=== PATIENT | male | born 1965 | race Caucasian/White ===

== ENCOUNTER 2020-09-24 17:54 | Inpatient (IN) | payer OTHER ==
[~2020-09-24] VITALS: Ht 172.7 cm; Wt 88.9 kg
[2020-09-24] MEDS ORDERED: ZESTRIL10 M1 PO (18:06)
[2020-10-13] MEDS ORDERED: B Complex CAPSULE PO (10:05)
[2020-10-13] MEDS ORDERED: HYDRALAZINE HCL50 MG PO (10:05)
[2020-10-13] MEDS ORDERED: PREDNISONE20 MG PO (10:05)
[2020-10-13] MEDS ORDERED: CLONAZEPAM0.5 MG PO (10:05)
[2020-10-13] MEDS ORDERED: ROCALTROL0.25 MCG PO (10:05)
[2020-10-13] MEDS ORDERED: PROCARDIA XL90 MG PO (10:05)
[2020-10-13] MEDS ORDERED: FOLIC ACID1 MG PO (10:05)
[2020-10-13] MEDS ORDERED: GABAPENTIN300 MG PO (10:05)
[2020-10-13] MEDS ORDERED: ATOVAQUONE750 MG/5 M PO (10:36)
[2020-10-13] MEDS ORDERED: PEPCID AC20 MG PO (10:36)
== END 2020-10-13 14:34 | disposition home or self-care (01) | DRG 660 ==
LOC: ER 17:54 → EDBD 18:01 → MEDI 09-25 10:20 → MEDJ 09-25 10:20
PROVIDERS: Surgery; ADMIT Internal Medicine; ATTEND Internal Medicine
PROC: 30233N1 Transfusion of Nonautologous Red Blood Cells into Peripheral Vein, Percutaneous Approach (ICD-10-PCS; 2020-09-26)
PROC: BT14ZZZ Fluoroscopy of Kidneys, Ureters and Bladder (ICD-10-PCS; 2020-09-26)
PROC: 06HY33Z Insertion of Infusion Device into Lower Vein, Percutaneous Approach (ICD-10-PCS; 2020-09-27)
PROC: 5A1D70Z Performance of Urinary Filtration, Intermittent, Less than 6 Hours Per Day (ICD-10-PCS; 2020-09-27)
PROC: BW21ZZZ Computerized Tomography (CT Scan) of Abdomen and Pelvis (ICD-10-PCS; 2020-09-28)
PROC: 0T913ZX Drainage of Left Kidney, Percutaneous Approach, Diagnostic (ICD-10-PCS; 2020-10-02)
PROC: BT43ZZZ Ultrasonography of Bilateral Kidneys (ICD-10-PCS; 2020-10-02)
PROC: CT231ZZ Tomographic (Tomo) Nuclear Medicine Imaging of Kidneys, Ureters and Bladder using Technetium 99m (Tc-99m) (ICD-10-PCS; 2020-10-03)
PROC: 0T768DZ Dilation of Right Ureter with Intraluminal Device, Via Natural or Artificial Opening Endoscopic (ICD-10-PCS; principal; 2020-10-03 18:00)
PROC: BW2FZZZ Computerized Tomography (CT Scan) of Neck (ICD-10-PCS; 2020-10-04)
PROC: BG44ZZZ Ultrasonography of Thyroid Gland (ICD-10-PCS; 2020-10-05)
PROC: CB2YYZZ Tomographic (Tomo) Nuclear Medicine Imaging of Respiratory System using Other Radionuclide (ICD-10-PCS; 2020-10-05)
PROC: 0JH63XZ Insertion of Tunneled Vascular Access Device into Chest Subcutaneous Tissue and Fascia, Percutaneous Approach (ICD-10-PCS; 2020-10-06)
PROC: 02H633Z Insertion of Infusion Device into Right Atrium, Percutaneous Approach (ICD-10-PCS; 2020-10-06)
PROC: [UNRECOGNIZED PROCEDURE] (2020-10-07)
PROC: 0TF68ZZ Fragmentation in Right Ureter, Via Natural or Artificial Opening Endoscopic (ICD-10-PCS; 2020-10-10)
DX: N17.8 Other acute kidney failure (principal); I12.0 Hypertensive chronic kidney disease with stage 5 chronic kidney disease or end stage renal disease; N20.2 Calculus of kidney with calculus of ureter; N10 Acute pyelonephritis; Z87.442 Personal history of urinary calculi; D64.9 Anemia, unspecified; F32.89 Other specified depressive episodes; Z20.828 Contact with and (suspected) exposure to other viral communicable diseases; N18.6 End stage renal disease; Z99.2 Dependence on renal dialysis; G25.3 Myoclonus; G25.81 Restless legs syndrome